=== PATIENT | male | born 1970 | race Caucasian/White ===

== ENCOUNTER 2022-01-16 09:41 | Emergency (ER) | payer MEDICAID ==
[~2022-01-16] VITALS: Ht 167.6 cm; Wt 75.0 kg
[2022-01-16 11:12] VITALS: BP 158/80
[2022-01-16] MEDS ORDERED: IBUPROFEN 600MG TABLET PO ONE (11:15)
[2022-01-16] MEDS ORDERED: IBUP-2029 MT (13:40)
[2022-01-16] MEDS ORDERED: TOLN30CR17 TP (13:40)
[2022-01-17] MEDS ORDERED: CLOT24CR TP (06:02)
== END 2022-01-16 14:03 | disposition home or self-care (01) ==
LOC: ER 09:41
DX: S60.221A Contusion of right hand, initial encounter (principal); B35.3 Tinea pedis; G40.909 Epilepsy, unspecified, not intractable, without status epilepticus; Z59.00 Homelessness unspecified; W22.8XXA Striking against or struck by other objects, initial encounter; Y93.89 Activity, other specified; Y92.89 Other specified places as the place of occurrence of the external cause
CPT/HCPCS: 73130; 99283

== ENCOUNTER 2022-01-17 03:31 | Emergency (ER) | payer MEDICAID ==
[~2022-01-17] VITALS: Ht 165.1 cm; Wt 52.8 kg
[~2022-01-17 03:31] MED LIST: IBUP-2029 MT; TOLN30CR17 TP
[2022-01-17 03:44] VITALS: BP 152/95
[2022-01-17] MEDS ORDERED: CLOT24CR TP (06:02)
== END 2022-01-17 06:43 | disposition home or self-care (01) ==
LOC: ER 03:31
DX: B35.3 Tinea pedis (principal); Z86.59 Personal history of other mental and behavioral disorders
CPT/HCPCS: 99282

== ENCOUNTER 2022-01-17 10:28 | Emergency (ER) | payer MEDICAID ==
[~2022-01-17] VITALS: Ht 165.1 cm; Wt 64.0 kg
[~2022-01-17 10:28] MED LIST changes: +CLOT24CR TP
[2022-01-17 10:31] VITALS: BP 122/69
[2022-01-17] MEDS ORDERED: CLOTRIMAZOLE 1% CREAM 15GM TOP ONE (11:45)
[2022-01-17] MEDS ORDERED: BACITRACIN/POLYMYXIN B SULFATE OINT 15GM TOP ONE (11:45)
[2022-01-17 11:56] LABS: EOSINOPHILS % 7.7 % (0.0-5.0); HEMOGLOBIN. 10.8 g/dL (14.0-18.0); LYMPHOCYTES % 25.9 % (20.0-50.0); MEAN CORPUSCULAR HEMOGLOBIN 31.9 pg (28.0-32.0); MEAN CORPUSCULAR VOLUME 97.2 fL (80.0-94.0); MEAN PLATELET VOLUME 7.6 fl (7.4-10.4); MONOCYTES % 9.6 % (2.0-8.0); NEUTROPHILS % 55.8 % (40.0-76.0); PLATELET 250 x1000/uL (130-400); RED BLOOD CELL COUNT 3.39 mill/uL (4.7-6.1); RED CELL DISTRIBUTION WIDTH 15.5 % (11.6-14.6)
[2022-01-17 12:02] LABS: CHLORIDE 101 mEq/L (98-107)
[2022-01-17] MEDS ORDERED: IBUPROFEN 400MG TABLET PO ONE (12:45)
[2022-01-17] MEDS ORDERED: ACETAMINOPHEN 325MG TABLET PO ONE (12:45)
== END 2022-01-17 14:16 | disposition home or self-care (01) ==
LOC: ER 10:28
DX: B35.3 Tinea pedis (principal); F15.10 Other stimulant abuse, uncomplicated; Z59.00 Homelessness unspecified; Z86.59 Personal history of other mental and behavioral disorders; Z98.890 Other specified postprocedural states
CPT/HCPCS: 36415; 73630; 80053; 85025; 99284